=== PATIENT | male | born 1970 | race Two or more races ===

== ENCOUNTER 2018-05-05 00:03 | Emergency (ER) | payer MEDICAID, OTHER ==
[~2018-05-05] VITALS: Ht 182.9 cm; Wt 95.3 kg
--- NOTE | 2018-05-05 00:10 | NUR ---
Pt to er bb ra for etoh intoxication. No signs of distress noted. Pt vital signs stable. Pt arousable to painful stimuli. pt to er bed, changed into gown and connected to monitor. will cont to monitor pt.
--- NOTE | 2018-05-05 04:25 | NUR ---
Pt sleeping in [place]. No signs of distress noted. Pt vital signs stable. will cont to monitor pt.
--- NOTE | 2018-05-05 07:04 | NUR ---
Pt ambulatory with steady gait. Pt vital signs stable. A/ox3.
[2018-05-05 07:20] VITALS: BP 109/70
--- NOTE | 2018-05-05 07:23 | NUR ---
Patient discharged to home in stable condition. Written and verbal after care instructions given. Patient verbalizes understanding of instruction.
== END 2018-05-05 07:22 | disposition home or self-care (01) ==
LOC: ER 00:05
DX: F10.129 Alcohol abuse with intoxication, unspecified (principal); R41.82 Altered mental status, unspecified; Z60.2 Problems related to living alone; Y90.9 Presence of alcohol in blood, level not specified
CPT/HCPCS: 70450-TC